=== PATIENT | female | born 1940 | race Caucasian/White ===

== ENCOUNTER 2019-10-15 13:46 | Inpatient (IN) | payer MEDICARE ==
[~2019-10-15] VITALS: Ht 170 cm; Wt 86.3 kg
[~2019-10-15 13:46] MED LIST: ALBU17AE23; AMLO1CAP6 PO; AMLO2.5T; ASPI-84; CLN.1T PO; CLON1PAT15 TD; DARI15TA4 PO; FLUT1DIS26 IH; HYDR1TAB75 PO; HYDROCODONE PO; HYDROCONE PO; NFAMINITAB PO; OXYB5TAB9 PO; SLMFT1E; TOLTA4
[2019-10-15] MEDS ORDERED: CALCIUM CARBONATE 500 MG (TUMS) TAB.CHEW PO PRN (14:15)
[2019-10-15] MEDS ORDERED: LOPERAMIDE 2 MG (IMODIUM) TABLET PO PRN (14:15)
[2019-10-15] MEDS ORDERED: DOCUSATE SODIUM 100 MG (COLACE) CAP PO PRN (14:15)
[2019-10-15] MEDS ORDERED: ACETAMINOPHEN 500 MG TAB (TYLENOL) PO PRN (14:15)
[2019-10-15] MEDS ORDERED: MELATONIN 3 MG TABLET PO PRN (14:15)
[2019-10-15] MEDS ORDERED: ONDANSETRON 4 MG (ZOFRAN) ORAL DISSOLVE TAB PO PRN (14:15)
[2019-10-15] MEDS ORDERED: diphenhydrAMINE 25 MG TAB (BENADRYL) PO PRN (14:15)
--- NOTE | 2019-10-15 15:25 | NUR ---
SANTISTELLA Trevizo admitted to room 431-1, with an admitting diagnosis of BILATERAL PUBIC RAMIUS FRACTURE, on 10/15/19 from [facility] via [facility], accompanied by EMS STAFF. STELLA GU introduced to surroundings, call light, bed controls, phone, TV, temperature control, lights, meal times, smoking policy, visitor policy, side rail policy, bathrooms and showers. Patient Rights given to patient in the handbook. STELLA GU verbalizes understanding that [facility] is not responsible for the loss or damage to any personal effects or valuables that are kept in the patients posession during their hospitalization. STELLA GU verbalizes understanding of Interdisciplinary Patient Education. Patient and/or family were informed about the Rapid Response Team and its purpose.
[2019-10-15] MEDS: HYDROcodone/APAP 5 MG/325 MG (LORTAB) TAB PO PRN (16:10)
[2019-10-15 16:11] VITALS: BP 176/83
[2019-10-15] MEDS: ENOXAPARIN 40 MG/0.4 ML (LOVENOX) SYR SC SCH (17:47)
[2019-10-15 17:56] VITALS: BP 176/83
[2019-10-15 19:30] VITALS: BP 116/66
[2019-10-15] MEDS: HYDROmorphone 2 MG/ML VIAL (DILAUDID) IVP PRN (19:43)
[2019-10-15] MEDS: SENNA W/DOCUSATE (SENOKOT S) TABLET PO SCH (19:46)
--- NOTE | 2019-10-15 20:47 | History & Physical-Hospitalist ---
History of Present Illness HPI/Chief Complaint Chief complaint: Bilateral pubic rami fractures with severe pain and inability to ambulate History of present illness: This is a 79-year-old white female clinic patient of [facility] Don in [place] who has a past medical history of dementia with anxiety, overactive bladder, hypertension and neuropathy who presented to [place] ER after a fall found down at home by her daughter likely on the floor for about 8 hours. She had a very minimal elevation in CPK. She reports that she sustained a fall in the middle of the night and is not aware of exactly what happened. Currently she is only reporting pain where the fractures are. We have placed her on Lovenox and pain control due to immobile state. We will initiate PT and OT orders inquire for prior approval from insurance for inpatient rehab and monitor closely for delirium due to history of dementia. I did review the old records in the [facility] system. I have reviewed her home medication and she will take her own tonight. 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 Her daughters at the bedside. Source: patient, family, RN/MD Exam Limitations: no limitations Date Seen 10/15/19 Time Seen by a Provider: 17:20 Attending Physician Amanda Chavarria MD PCP Sheree Richards Referring Physician Date of Admission Oct 15, 2019 at 15:32 Home Medications & Allergies Home Medications Reviewed patient Home Medication Reconciliation performed by pharmacy medication reconciliations senior electronics technician and/or nursing. Patients Allergies have been reviewed. Allergies Allergies Coded Allergies Indomethacin (Unverified Allergy, Mild, 02/26/10) Lansoprazole (Unverified Allergy, Mild, 02/26/10) Omeprazole (Unverified Allergy, Mild, 02/26/10) Sumatriptan (Unverified Allergy, Mild, 02/26/10) Past Vttupql-Hnedby-Rxlngj Hx Past Med/Social Hx: Reviewed Nursing Past Med/Soc Hx, Reviewed and Corrections made Patient Social History Marrital Status: single Employed/Student: retired (RN) Alcohol Use: Denies Use Recreational Drug Use: No Smoking Status: Never a Smoker Physical Abuse Screen: No Sexual Abuse: No Recent Foreign Travel: No Contact w/other who traveled: No Recent Hopitalizations: Yes (SURGERIES) Recent Infectious Disease Expo: No Immunizations Up To Date Date of Pneumonia Vaccine: Nov 08, 2010 Date of Influenza Vaccine: Aug 07, 2019 Seasonal Allergies Seasonal Allergies: No Past Medical History Cardiac: High Cholesterol, Hypertension Neurological: Dementia, Neuropathy : No Reproductive: No Genitourinary: Bladder Infection OAB Gastrointestinal: Chronic Constipation Musculoskeletal: Fractures Psychosocial: Anxiety, Depression History of Blood Disorders: No Family History Asthma G8 SISTER Cardiovascular disease G8 BROTHER, Completed stroke G8 SISTER Congenital disease G8 SISTER Deafness or hearing loss G8 SISTER FH: lung cancer 19 FATHER Hypertension 19 MOTHER, Myocardial infarction Review of Systems Constitutional: see HPI, weakness Musculoskeletal: back pain, joint pain Psychiatric/Neurological: Anxiety, Depressed Physical Exam Physical Exam Vital Signs Vital Signs - First Documented 10/15/19 16:11 Temp 36.6 Pulse 94 Resp 20 B/P (MAP) 176/83 (114) Pulse Ox 94 O2 Delivery Room Air Capillary Refill : Less Than 3 Seconds Height, Weight, BMI Height: '" Weight: lbs. oz. kg; 29.75 BMI Method: General Appearance: WD/WN, Chronically ill, Mild Distress, Obese Eyes: Right Eye Normal Inspection, Right Eye PERRL HEENT: PERRL/EOMI, Normal ENT Inspection, Pharynx Normal, Moist Mucous Membranes Neck: Full Range of Motion, Normal Inspection, Non Tender Respiratory: Chest Non Tender, Lungs Clear, Normal Breath Sounds, No Accessory Muscle Use, No Respiratory Distress Cardiovascular: Regular Rate, Rhythm, No Edema, No Gallop, No JVD, No Murmur, Normal Peripheral Pulses Gastrointestinal: Normal Bowel Sounds, No Organomegaly, No Pulsatile Mass, Non Tender, Soft Back: Normal Inspection, No CVA Tenderness, No Vertebral Tenderness Extremity: Normal Capillary Refill, Normal Inspection, Normal Range of Motion (limited ROM legs due to pelvic fractures), Non Tender, No Calf Tenderness, No Pedal Edema Neurologic/Psychiatric: Alert, Oriented x3, No Motor/Sensory Deficits, Normal Mood/Affect Skin: Normal Color, Warm/Dry Lymphatic: No Adenopathy Results Results/Procedures Labs Patient resulted labs reviewed. Assessment/Plan Admission Diagnosis Assessment: Bilateral pubic rami fractures Inability to ambulate DVT PPx HTN OAB Dementia Mental illness Neuropathy Anemia iron deficiency Plan: Pain meds Lovenox Home meds PT/OT IRF? BM regimen Admission Status: Inpatient Order (span 2 midnights) Reason for Inpatient Admission: bilateral pubic rami fractures will require at least 3 days since she can't ambulate Diagnosis/Problems Diagnosis/Problems (1) Bilateral pubic rami fractures (2) OAB (overactive bladder) (3) Hypertension (4) Fall (5) Kidney stones (6) Osteoarthritis (7) Behavior disturbance Clinical Quality Measures DVT/VTE Risk/Contraindication: Risk Factor Score Per Nursin RFS Level Per Nursing on Admit: 4+=Very High JANETT COTE DO Oct 15, 2019 20:47 POS
[2019-10-15 23:50] VITALS: BP 113/64
[2019-10-16 04:49] VITALS: BP 134/70
[2019-10-16 05:51] LABS: BASOPHILS % (AUTO) 0 % (0-10); EOSINOPHILS # (AUTO) 0.2 10^3/uL (0.0-0.3); EOSINOPHILS % (AUTO) 3 % (0-10); HEMATOCRIT 39 % (35-52); HEMOGLOBIN 12.9 G/DL (11.5-16.0); LYMPHOCYTES # (AUTO) 2.2 X 10^3 (1.0-4.0); LYMPHOCYTES % (AUTO) 25 % (12-44); MEAN CORPUSCULAR HEMOGLOBIN 28 PG (25-34); MEAN CORPUSCULAR HGB CONC 33 G/DL (32-36); MEAN CORPUSCULAR VOLUME 86 FL (80-99); MEAN PLATELET VOLUME 9.3 FL (7.4-10.4); MONOCYTES # (AUTO) 0.9 X 10^3 (0.0-1.0); MONOCYTES % (AUTO) 10 % (0-12); NEUTROPHILS # (AUTO) 5.6 X 10^3 (1.8-7.8); NEUTROPHILS % (AUTO) 62 % (42-75); PLATELET COUNT 300 10^3/uL (130-400); RED CELL DISTRIBUTION WIDTH 19.1 % (10.0-14.5)
[2019-10-16 06:15] LABS: BILIRUBIN,TOTAL 1.3 MG/DL (0.1-1.0); CALCIUM 9.4 MG/DL (8.5-10.1); CREATININE SERUM 1.23 MG/DL (0.60-1.30); POTASSIUM 3.7 MMOL/L (3.6-5.0); TOTAL PROTEIN 6.5 GM/DL (6.4-8.2)
[2019-10-16 08:00] VITALS: BP 114/62
--- NOTE | 2019-10-16 08:26 | Progress Note ---
RAMONE DEJESUS,MED STUDENT 10/16/19 0826: Subjective Date Seen by a Provider: Oct 16, 2019 Time Seen by a Provider: 07:15 Subjective/Events-last exam Chief complaint: Bilateral pubic rami fractures with severe pain and inability to ambulate History of present illness: This is a 79-year-old white female clinic patient of Theresa Don in [place] who has a past medical history of dementia with anxiety, overactive bladder, hypertension and neuropathy who presented to [place] ER after a fall found down at home by her daughter likely on the floor for about 8 hours. She had a very minimal elevation in CPK. She reports that she sustained a fall in the middle of the night and is not aware of exactly what happened. Currently she is only reporting pain where the fractures are. We have placed her on Lovenox and pain control due to immobile state. We will initiate PT and OT orders inquire for prior approval from insurance for inpatient rehab and monitor closely for delirium due to history of dementia. I did review the old records in the [facility] system. I have reviewed her home medication and she will take her own tonight. 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 Her daughters at the bedside. Subjective/events-last exam Patient feeling well, denies any pain at this time. Denies numbness or tingling. Slept well. Appetite is good. PT/OT and IRF eval today. Objective Exam Last Set of Vital Signs Vital Signs Date Time Temp Pulse Resp B/P (MAP) Pulse Ox O2 Delivery O2 Flow Rate FiO2 10/16/19 04:49 36.5 84 18 134/70 (91) 90 Room Air Capillary Refill : Less Than 3 Seconds I&O Intake and Output 10/16/19 00:00 Intake Total 200 ml Output Total 175 ml Balance 25 ml Intake Oral 200 ml Output Urine Total 175 ml Daily Weight Change No No General: Alert, Cooperative, No Acute Distress Neck: Supple, No LAD Lungs: Clear to Auscultation, Normal Air Movement Heart: Regular Rate, Normal S1, Normal S2, No Murmurs Abdomen: Soft, No Tenderness, No Masses Extremities: No Edema, No Tenderness/Swelling, Other (limited ROM due to b/l pubic rami fracture\) Skin: No Rashes, No Significant Lesion Results Lab Laboratory Tests 10/16/19 05:30: White Blood Count 9.0, Red Blood Count 4.54, Hemoglobin 12.9, Hematocrit 39, Mean Corpuscular Volume 86, Mean Corpuscular Hemoglobin 28, Mean Corpuscular Hemoglobin Concent 33, Red Cell Distribution Width 19.1H, Platelet Count 300, Mean Platelet Volume 9.3, Neutrophils (%) (Auto) 62, Lymphocytes (%) (Auto) 25, Monocytes (%) (Auto) 10, Eosinophils (%) (Auto) 3, Basophils (%) (Auto) 0, Neutrophils # (Auto) 5.6, Lymphocytes # (Auto) 2.2, Monocytes # (Auto) 0.9, Eosinophils # (Auto) 0.2, Basophils # (Auto) 0.0, Sodium Level 136, Potassium Level 3.7, Chloride Level 100, Carbon Dioxide Level 23, Anion Gap 13, Blood Urea Nitrogen 28H, Creatinine 1.23, Estimat Glomerular Filtration Rate 42, BUN/Creatinine Ratio 23, Glucose Level 117H, Calcium Level 9.4, Corrected Calcium 9.4, Total Bilirubin 1.3H, Aspartate Amino Transf (AST/SGOT) 22, Alanine Aminotransferase (ALT/SGPT) 14, Alkaline Phosphatase 73, Total Protein 6.5, Albumin 4.0 Assessment/Plan Assessment/Plan Assess & Plan/Chief Complaint Assessment: Bilateral pubic rami fractures Inability to ambulate DVT PPx HTN OAB Dementia Mental illness Neuropathy Anemia iron deficiency Plan: Pain meds Continue santiago catheter for today Lovenox Home meds PT/OT evaluation IRF evaluation BM regimen Clinical Quality Measures DVT/VTE Risk/Contraindication: Risk Factor Score Per Nursin RFS Level Per Nursing on Admit: 4+=Very High JANETT COTE DO 10/16/192058: Subjective Subjective/Events-last exam Pt doing pretty well having some results from bowel regimen and currently on commode Labs were reviewed, everything within normal limits Lovenox for DVT prophylaxis PT and OT evaluated [facility] pt Will submit for approval for [employer] Denies any significant issues other than paini Dementia may slow recovery Review of Systems General: Fatigue Musculoskeletal: back pain Neurological: Confusion Objective Exam General: Alert, Oriented X3, Cooperative, No Acute Distress HEENT: Atraumatic, PERRLA Neck: Supple, No JVD, No Thyromegaly Lungs: Clear to Auscultation, Normal Air Movement Heart: Regular Rate, Normal S1, Normal S2, No Murmurs Neuro: Other (limited gait ) Assessment/Plan Assessment/Plan Assess & Plan/Chief Complaint PT/OT IRF? NHP? Pain control Diagnosis/Problems Diagnosis/Problems (1) Bilateral pubic rami fractures (2) Kidney stones (3) Osteoarthritis (4) Behavior disturbance (5) Hypertension (6) Fall (7) OAB (overactive bladder) Supervisory-Addendum Brief Verification & Attestation Participated in pt care: history, MDM, physical Personally performed: exam, history, MDM, supervision of care Care discussed with: Medical Student Procedures: n/a Results interpretation: Verified all documentation Verification and Attestation of Medical Student E/M Service A medical student performed and documented this service in my presence. I reviewed and verified all information documented by the medical student and made modifications to such information, when appropriate. I personally performed the physical exam and medical decision making. Janett Cote, Oct 16, 2019,20:58 RAMONE DEJESUS,MED STUDENT Oct 16, 2019 08:26 JANETT URENA DO Oct 16, 2019 20:59 POS
[2019-10-16 08:55] VITALS: BP 134/70
[2019-10-16] MEDS: SENNA W/DOCUSATE (SENOKOT S) TABLET PO SCH ×2 (09:14→19:30)
[2019-10-16] MEDS: HYDROmorphone 2 MG/ML VIAL (DILAUDID) IVP PRN (09:20)
--- NOTE | 2019-10-16 10:30 | NUR ---
SS/CM Met with pt to based on need for Discharge. Plan: Physician ordered inpatient rehab to evaluate. Pt given the choice form and selected [facility] as her choice for in patient rehab. [facility] rehab to evaluate. Summary: Pt seemed a little groggy today, as she was just given some pain medication. Pt was given the choice form and selected [facility] for in patient rehab. Evaluation process explained. Pt's daughter will be here at 11:30am today and this worker will visit pt again once daughter arrives. Pt lives in [place] and reports lives alone. Follow up needed once pt is evaluated by in patient rehab.
--- NOTE | 2019-10-16 10:44 | Physical Therapy Evaluation ---
PT Evaluation-General Medical Diagnosis Admission Date Oct 15, 2019 at 15:32 Medical Diagnosis: bilateral pubic rami fracture Onset Date: Oct 15, 2019 Therapy Diagnosis Therapy Diagnosis: debility/weakness Precautions Precautions/Isolations: Fall Prevention, Standard Precautions Weight Bear Status Right Lower Extremity: Right Weight Bearing/Tolerated Left Lower Extremity: Left Weight Bearing/Tolerated Referral Physician: Edil Reason for Referral: Evaluation/Treatment Medical History Pertinent Medical History: Dementia, HTN, Neuropathy Current History fall at home and on floor x 8 hours Reviewed History: Yes Social History Home: Single Level Current Living Status: Alone (family check on her) Prior Prior Level of Function SCALE: Activities may be completed with or without assistive devices. 4-Fqqgscrsxf-ahjghjh completes the activity by him/herself with no assistance from a helper. 5-Set-up or Clean-up Assistance-helper sets up or cleans up; patient completes activity. [place] assists only prior to or following the activity. 4-Supervision or Touching Assistance-helper provides verbal cues and/or touching/steadying and/or contact guard assistance as patient completes activity. Assistance may be provided throughout the activity or intermittently. 3-Partial/Moderate Assistance-helper does LESS THAN HALF the effort. [place] lifts, holds or supports trunk or limbs, but provides less than half the effort. 2-Substantial/Maximal Assistance-helper does MORE THAN HALF the effort. [place] lifts or holds trunk or limbs and provides more than half the effort. 1-Mgdxrfffj-tlrlrk does ALL the effort. Patient does none of the effort to complete the activity. Or, the assistance of 2 or more helpers is required for the patient to complete the activity. If activity was not attempted, code reason: 7-Patient Refused. 9-Not Applicable-not attempted and the patient did not perform the activity before the current illness, exacerbation or injury. 10-Not Attempted due to Environmental Limitations-(lack of equipment, weather restraints, etc.). 88-Not Attempted due to Medical Conditions or Safety Concerns. Bed Mobility: 5 Transfers (B,C,W/C): 5 Gait: 5 Stairs: 5 Indoor Mobility (Ambulation): Independent Stairs: Independent Prior Devices Use: Walker PT Evaluation-Current Subjective Patient is alert, however, confused. Agrees to PT. Pain Numeric Pain Scale: 10-Worst Possible Pain Location: Right, Left Location Body Site: Pelvic Pain Description: Stabbing, Acute Objective Patient Orientation: Confused Attachments: Oxygen, [place] Catheter ROM/Strength ROM Lower Extremities limited bilaterally due to pain Strength Lower Extremities 3-/5 grossly bilaterally (unable to formally test due to dementia) Integumentary/Posture Integumentary refer to nursing notes Bowel Incontinence: Yes Bladder Incontinence: [place] Cath Posture trunk flexed posture in stand Neuromuscular (Tone, Coordination, Reflexes) severely diminished due to pubic rami pain Sensory Vision: Functional Hearing: Functional Sensation Right Lower Extremit: Impaired Sensation Left Lower Extremity: Impaired Transfers Roll Left to Right (QC): 1 Sit to Lying (QC): 1 Lying to Sitting/Side of Bed(Q: 1 Sit to Stand (QC): 1 Chair/Nou-zv-Leemq Xfer(QC): 1 Car Transfer (QC): 88 dependent assist x 2 with all mobility due to pubic rami pain and resistance Gait Does the Patient Walk?: No and Walking Goal IS indicated Mode of Locomotion: Both Anticipated Mode of Locomotion: Both Walk 10 feet (QC): 88 Walk 50 ft with 2 Turns(QC): 88 Walk 150 ft (QC): 88 Walking 10ft/uneven surface-QC: 88 Distance: 0 Comments/Gait Description patient currently unable to stand and assist with sit to stand and SPT bed to recliner to commode Wheelchair Training Does the Pt Use a Wheelchair?: No Wheel 50 ft with 2 turns (QC): 9 Wheel 150 ft (QC): 9 Type of Wheelchair: Manual Stairs 1 Step (curb) (QC): 88 4 Steps (QC): 88 12 Steps (QC): 9 Balance Sitting Static: Fair Sitting Dynamic: Fair Standing Static: Poor Standing Dynamic: Poor Picking up an Object (QC): 88 Assessment/Needs 79 y.o. female, will benefit from skilled PT to address functional strength and mobility. Patient is currently at dependent x 2 LOF with all gross motor skills and from a PT standpoint, will require extended care facility due to prolonged recovery of bilateral pubic rami fracture and inability to assist with mobility. Rehab Potential: Guarded PT Digital Media Manager Goals Digital Media Manager Goals PT Shelter Goals Time Frame: Oct 28, 2019 Roll Left & Right (QC): 2 Sit to Lying (QC): 2 Lying-Sitting on Side/Bed(QC): 2 Sit to Stand (QC): 2 Chair/Lyd-wr-Dxqin Xfer(QC): 2 Toilet Transfer (QC): 2 Car Transfer (QC): 88 Does the Patient Walk: No and Walking Goal IS indicated Walk 10 feet (QC): 2 Walk 50ft with 2 Turns (QC): 2 Walk 150 ft (QC): 88 Walking 10ft on Uneven Surface: 2 1 Step (curb) (QC): 2 4 Steps (QC): 9 12 Steps (QC): 9 Picking up an Object (QC): 3 Does the Pt use WC or Scooter?: Yes Type: Manual Type: Manual PT Plan Problem List Problem List: Activity Tolerance, Functional Strength, Safety, Balance, Gait, Transfer, Bed Mobility, ROM Treatment/Plan Treatment Plan: Continue Plan of Care Treatment Plan: Bed Mobility, Education, Functional Activity Tanya, Functional Strength, Gait, Safety, Therapeutic Exercise, Transfers Treatment Duration: Oct 28, 2019 Frequency: 6 times per week Estimated Hrs Per Day: .5 hour per day Patient and/or Family Agrees t: Yes Safety Risks/Education Patient Education: Safety Issues Teaching Recipient: Patient Teaching Methods: Demonstration, Discussion Response to Teaching: Unable to Return Demonstration, Reinforcement Needed Discharge Recommendations Therapy Discharge Recommendati: Other, See Comments (NH secondary to current dependence) Time/GCodes Time In: 907 Time Out: 922 Total Billed Treatment Time: 15 Total Billed Treatment 1 visit EVMod 15 min NOMI SHERMAN PT Oct 16, 2019 10:44 POS
[2019-10-16] MEDS ORDERED: AMLO5TAB9 PO (10:50)
[2019-10-16] MEDS ORDERED: ALBU6.7H8 INH (10:50)
[2019-10-16] MEDS ORDERED: MULT-436 PO (10:50)
[2019-10-16] MEDS ORDERED: MIRA25TA PO (10:50)
[2019-10-16] MEDS ORDERED: GABA-486 PO (10:50)
[2019-10-16] MEDS ORDERED: MEMA5TAB16 PO (10:50)
[2019-10-16] MEDS ORDERED: ESCI10TA55 PO (10:50)
[2019-10-16] MEDS ORDERED: QUET50TA PO (10:55)
[2019-10-16] MEDS ORDERED: FERR325T18 PO (10:55)
[2019-10-16] MEDS ORDERED: MELA5TAB14 PO (10:55)
--- NOTE | 2019-10-16 10:56 | NUR ---
SPOKE WITH THE PATIENT ABOUT HER MEDICATIONS. SHE ASKED THAT I CALL HER DAUGHTER ARAMIS WHO HELPS HER WITH HER MEDICINE. I CALLED ARAMIS WHO HAD A LIST, WE WENT OVER THAT LIST AND I COMPARED IT WITH THE EXT MED HX. IN ADDITION TO WHAT IS SHOWN ON THE EXT MED HX [facility] FILLED: 09-21-19 FERROUS SULFATE 325MG BID #60 08-23-19 SEROQUEL 50MG DAILY #90 (STATES SHE TAKES 1/2 TAB AT HS) SHE TAKES THE FOLLOWING OTC: MELATONIN 5MG HS MTV DAILY THE OXYBUTYNIN ON THE EXT MED HX WAS STOPPED AND CHANGED TO MYRBETRIQ.
[2019-10-16] MEDS: RT-ALBUTEROL/IPRATROPIUM 3 ML (DUONEB) VIAL INH SCH ×3 (11:21→18:58)
[2019-10-16 12:00] VITALS: BP 134/63
[2019-10-16] MEDS ORDERED: RT-ALBUTEROL/IPRATROPIUM 3 ML (DUONEB) VIAL INH PRN (13:00)
--- NOTE | 2019-10-16 13:01 | NUR ---
CM/SS: Met with daughter Deana to discuss discharge plan for pt. Plan: Based on consult, pt will be evaluated for inpatient rehab. Daughter request that pt remain in the hospital for rehab. Discussed the choice form, explained this workers earlier meeting with patient. Daughter reports that pt has a recent (4 months) diagnosis of Dementia. Daughter does not request that pt go to [facility]. She will be with the pt most of the afternoon today. Will follow up to determine plan for pt.
--- NOTE | 2019-10-16 14:45 | Occupational Therapy Eval ---
OT Evaluation-General/PLF Medical Diagnosis Admission Date Oct 15, 2019 at 15:32 Medical Diagnosis: bilateral pubic rami fracture Onset Date: Oct 15, 2019 Therapy Diagnosis Therapy Diagnosis: impaired ADLs and functional mobility Precautions Precautions/Isolations: Fall Prevention, Standard Precautions Safety Interventions: Bed Exit Alarm Weight Bear Status Weight Bearing Restriction: Weight Bearing/Tolerated Location Restriction: LE Bilateral Referral Physician: Edil Referral Reason: Activity Tolerance, Self Care, Evaluation/Treatment, Strengthening/ROM Medical History Pertinent Medical History: Dementia, HTN, Neuropathy Additional Medical History anxiety, overactive bladder, high cholesterol Current History Per H&P: "History of present illness: This is a 79-year-old white female clinic patient of [facility] in [place] who has a past medical history of dementia with anxiety, overactive bladder, hypertension and neuropathy who presented to [place] ER after a fall found down at home by her daughter likely on the floor for about 8 hours. She had a very minimal elevation in CPK. She reports that she sustained a fall in the middle of the night and is not aware of exactly what happened. Currently she is only reporting pain where the fractures are. We have placed her on Lovenox and pain control due to immobile state. We will initiate PT and OT orders inquire for prior approval from insurance for inpatient rehab and monitor closely for delirium due to history of dementia. I did review the old records in the [facility] system. I have reviewed her home medication and she will take her own tonight. 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 Her daughters at the bedside." Reviewed History: Yes Social History Home: Single Level Current Living Status: Alone (family check on her) Entry Into Home: Stairs With Railing Steps Into Home: 2 ADL-Prior Level of Function SCALE: Activities may be completed with or without assistive devices. 0-Skgmgntwxk-agrqizk completes the activity by him/herself with no assistance from a helper. 5-Set-up or Clean-up Assistance-helper sets up or cleans up; patient completes activity. [place] assists only prior to or following the activity. 4-Supervision or Touching Assistance-helper provides verbal cues and/or touching/steadying and/or contact guard assistance as patient completes activity. Assistance may be provided throughout the activity or intermittently. 3-Partial/Moderate Assistance-helper does LESS THAN HALF the effort. [place] lifts, holds or supports trunk or limbs, but provides less than half the effort. 2-Substantial/Maximal Assistance-helper does MORE THAN HALF the effort. [place] lifts or holds trunk or limbs and provides more than half the effort. 8-Sxwsglpuu-iuoumk does ALL the effort. Patient does none of the effort to complete the activity. Or, the assistance of 2 or more helpers is required for the patient to complete the activity. If activity was not attempted, code reason: 7-Patient Refused. 9-Not Applicable-not attempted and the patient did not perform the activity before the current illness, exacerbation or injury. 10-Not Attempted due to Environmental Limitations-(lack of equipment, weather restraints, etc.). 88-Not Attempted due to Medical Conditions or Safety Concerns. ADL PLOF Comments Per pt and daughter report: Pt was independent with bathing and dressing prior to hospitalization. Her 4 kids assist her with cooking and cleaning. Self Care: Independent Functional Cognition: Needed Some Help DME/Equipment: Bath Chair, Tub DME/Equipment Comments Pt and daughter denies use of walker/cane prior to hospitalization. Occupation: retired (RN) OT Current Status Subjective Pt laying in bed with daughter present at bedside. Pt states she just got back to bed and did not want to do anything, agreeable to answering questions for OT evaluation. Mental Status/Objective Patient Orientation: Person, Place, Situation When asked what year it was pt replied "1939 something". OT and daughter reoriented pt to correct year. Current Glasses/Contacts: Yes Hearing Aids: No Dentures/Partials: Yes Hand Dominance: Right Upper Extremity ROM WFL, BUE shoulder flexion to approximately 160 degrees. Upper Extremity Coordination WFL finger to nose test Upper Extremity Sensation pt declines tingling/numbness Upper Extremity Strength grossly 3+/5 MMT ADL-Treatment Eating (QC): 7 Oral Hygiene (QC): 7 Shower/Bathe Self (QC): 7 Upper Body Dressing (QC): 7 Lower Body Dressing (QC): 7 On/Off Footwear (QC): 7 Toileting Hygiene (QC): 7 Toilet Transfer (QC): 7 Other Treatments Pt provided information about PLOF and home set up. Pt declined all ADLs at this time stating she just got into bed, declined sitting EOB during tx. Post OT session, pt laying in bed with call light in reach and all needs met, daughter present. Education OT Patient Education: Correct positioning, Energy conservation, Modified ADL techniques, Progress toward Goal/Update tx plan, Purpose of tx/functional activities Teaching Recipient: Patient, Family Teaching Methods: Discussion Response to Teaching: Verbalize Understanding OT Slitter Scorer Goals Slitter Scorer Goals Time Frame: Oct 27, 2019 Eating (QC): 6 Oral Hygiene (QC): 6 Toileting Hygiene (QC): 6 Shower/Bathe Self (QC): 6 Upper Body Dressing (QC): 6 Lower Body Dressing (QC): 6 On/Off Footwear (QC): 6 Additional Goals: 1-Demonstrate ADL Tasks, 2-Verbalize Understanding, 3-ImproveStrength/Tanya 1=Demonstrate adherence to instructed precautions during ADL tasks. 2=Patient will verbalize/demonstrate understanding of assistive devices/modifications for ADL. 3=Patient will improve strength/tolerance for activity to enable patient to perform ADL's. OT Education/Plan Problem List/Assessment Assessment: Decreased Activ Tolerance, Decreased UE Strength, Impaired I ADL's, Impaired Self-Care Skills Discharge Recommendations Plan/Recommendations: Continue POC Treatment Plan/Plan of Care Treatment,Training & Education: Yes Patient would benefit from OT for education, treatment and training to promote independence in ADL's, mobility, safety and/or upper extremity function for ADL's. Plan of Care: ADL Retraining, Caregiver Training, Functional Mobility, UE Funct Exercise/Act Treatment Duration: Oct 27, 2019 Frequency: 5 times per week Estimated Hrs Per Day: .25 hour per day Agreement: Yes Rehab Potential: Guarded Time/GCodes Start Time: 14:05 Stop Time: 14:13 Total Time Billed (hr/min): 8 Billed Treatment Time 1, KELVIN TOVAR OT Oct 16, 2019 14:45 POS
[2019-10-16] MEDS: HYDROcodone/APAP 5 MG/325 MG (LORTAB) TAB PO PRN ×2 (16:28→21:13)
[2019-10-16 16:51] VITALS: BP 160/74
[2019-10-16] MEDS: ENOXAPARIN 40 MG/0.4 ML (LOVENOX) SYR SC SCH (17:54)
[2019-10-16 20:40] VITALS: BP 134/60
[2019-10-16] MEDS: ALPRAZolam 0.25 MG (XANAX) TAB PO PRN (21:07)
[2019-10-17 00:40] VITALS: BP 160/74
[2019-10-17] MEDS: HYDROmorphone 2 MG/ML VIAL (DILAUDID) IVP PRN (00:44)
[2019-10-17 07:35] VITALS: BP 130/72
--- NOTE | 2019-10-17 08:07 | Progress Note ---
RAMONE DEJESUS,MED STUDENT 10/17/19 0807: Subjective Date Seen by a Provider: Oct 17, 2019 Time Seen by a Provider: 07:23 Subjective/Events-last exam Chief complaint: Bilateral pubic rami fractures with severe pain and inability to ambulate History of present illness: This is a 79-year-old white female clinic patient of [facility] in [place] who has a past medical history of dementia with anxiety, overactive bladder, hypertension and neuropathy who presented to [place] ER after a fall found down at home by her daughter likely on the floor for about 8 hours. She had a very minimal elevation in CPK. She reports that she sustained a fall in the middle of the night and is not aware of exactly what happened. Currently she is only reporting pain where the fractures are. We have placed her on Lovenox and pain control due to immobile state. We will initiate PT and OT orders inquire for prior approval from insurance for inpatient rehab and monitor closely for delirium due to history of dementia. I did review the old records in the [facility] system. I have reviewed her home medication and she will take her own tonight. 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 Her daughters at the bedside. Subjective/events-last exam Pt appears more alert today Her pain is well controlled at this time but is exacerbated with movement She has not had a significant bowel movement for 2 days On lovenox for DVT prophylaxis Participated in PT and OT evaluation yesterday Dementia may slow recovery Will submit for approval for [facility] Objective Exam Last Set of Vital Signs Vital Signs Date Time Temp Pulse Resp B/P (MAP) Pulse Ox O2 Delivery O2 Flow Rate FiO2 10/17/19 00:40 36.8 109 21 160/74 (102) 93 Nasal Cannula 1.50 10/16/19 08:55 21 Capillary Refill : Less Than 3 Seconds I&O Intake and Output 10/17/19 00:00 Intake Total 670 ml Output Total 775 ml Balance -105 ml Intake Oral 670 ml Output Urine Total 775 ml General: Alert, No Acute Distress HEENT: Atraumatic, Mucous Memb Moist/[place] Neck: Supple, No LAD Lungs: Clear to Auscultation, Normal Air Movement Heart: Normal S1, Normal S2, No Murmurs, Other (tachycardia with regular rhythm) Abdomen: Soft, No Tenderness, No Masses, Other (decreased bowel sounds) Extremities: No Edema, No Tenderness/Swelling, Other (limited ROM of lower extremities due to b/l pubic rami fracture) Skin: No Rashes, No Significant Lesion Neuro: Sensation Intact Assessment/Plan Assessment/Plan Assess & Plan/Chief Complaint Assessment: Bilateral pubic rami fractures Inability to ambulate HTN OAB Dementia Mental illness Neuropathy Plan: Discontinue [place] Pain control Lovenox for DVT prophylaxis Home meds Continue OT/PT Wants discharge to [facility] in [place] when she is ready - will submit to [facility] Clinical Quality Measures DVT/VTE Risk/Contraindication: Risk Factor Score Per Nursin RFS Level Per Nursing on Admit: 4+=Very High JANETT COTE DO 10/17/192050: Subjective Subjective/Events-last exam Pt doing pretty well. Slow recovery. Skilled care will be required. Dementia precludes a past recovery. Pain is still an issue. Will initiate a suppository and an enema for bowels due to narcotic bowel risk an immoblile state contributing to the constipation. Review of Systems Gastrointestinal: Constipation Musculoskeletal: leg pain Objective Exam General: Alert, Oriented X3, Cooperative, No Acute Distress HEENT: Atraumatic, PERRLA Lungs: Clear to Auscultation, Normal Air Movement Heart: Regular Rate, Normal S1, Normal S2, No Murmurs Psych/Mental Status: Mood NL, Other (confused, poor recall) Assessment/Plan Assessment/Plan Assess & Plan/Chief Complaint Assessment: B/L pubic rami fractures Immobile due to pain DVT PPx Constipation HTN Dementia Plan: Monitor pain Monitor labs BM regimen Needs AK Diagnosis/Problems Diagnosis/Problems (1) Bilateral pubic rami fractures (2) Chronic mental illness (3) Kidney stones (4) Osteoarthritis (5) Behavior disturbance (6) Hypertension (7) Fall (8) OAB (overactive bladder) Supervisory-Addendum Brief Verification & Attestation Participated in pt care: history, MDM, physical Personally performed: exam, history, MDM, supervision of care Care discussed with: Medical Student Procedures: n/a Results interpretation: Verified all documentation Verification and Attestation of Medical Student E/M Service A medical student performed and documented this service in my presence. I r eviewed and verified all information documented by the medical student and made modifications to such information, when appropriate. I personally performed the physical exam and medical decision making. Janett Cote, Oct 17, 2019,20:51 RAMONE DEJESUS,MED STUDENT Oct 17, 2019 08:07 JANETT URENA DO Oct 17, 2019 20:51 POS
[2019-10-17] MEDS: RT-ALBUTEROL/IPRATROPIUM 3 ML (DUONEB) VIAL INH SCH ×4 (08:14→23:14)
--- NOTE | 2019-10-17 09:30 | Occupational Ther Daily Note ---
OT Current Status-Daily Note Subjective Pt seated upright in recliner at start of session with daughter present. Pt and daughter agreeable to OT tx with focus on ADLs this AM. Pain Numeric Pain Scale: 10-Worst Possible Pain Mental Status/Objective Attachments: Oxygen ADL-Treatment Therapy Code Descriptions/Definitions Functional [place] Measure: 0=Not Assessed/NA 4=Minimal Assistance 1=Total Assistance 5=Supervision or Setup 2=Maximal Assistance 6=Modified [place] 3=Moderate Assistance 7=Complete IndependenceSCALE: Activities may be completed with or without assistive devices. 3-Qhyaebhsln-vwjzukd completes the activity by him/herself with no assistance from a helper. 5-Set-up or Clean-up Assistance-helper sets up or cleans up; patient completes activity. [place] assists only prior to or following the activity. 4-Supervision or Touching Assistance-helper provides verbal cues and/or touching/steadying and/or contact guard assistance as patient completes activity. Assistance may be provided throughout the activity or intermittently. 3-Partial/Moderate Assistance-helper does LESS THAN HALF the effort. [place] lifts, holds or supports trunk or limbs, but provides less than half the effort. 2-Substantial/Maximal Assistance-helper does MORE THAN HALF the effort. [place] lifts or holds trunk or limbs and provides more than half the effort. 3-Uhqlpczko-wwraym does ALL the effort. Patient does none of the effort to complete the activity. Or, the assistance of 2 or more helpers is required for the patient to complete the activity. If activity was not attempted, code reason: 7-Patient Refused. 9-Not Applicable-not attempted and the patient did not perform the activity before the current illness, exacerbation or injury. 10-Not Attempted due to Environmental Limitations-(lack of equipment, weather restraints, etc.). 88-Not Attempted due to Medical Conditions or Safety Concerns. Bathing Location: L Arm, R Arm, L Upper Leg, R Upper Leg, Chest, Abdomen, Perineal Area Shower/Bathe Self (QC): 3 (Pt completed sponge bath at recliner with set up of warm wet wipes. Pt required assistance with washing BLE lower legs. Pt declined standing during sponge bath to wash buttocks. ) Upper Body Dressing (QC): 3 (Pt was able to doff gown after OT untied gown, pt able to thread BUE into gown with assistance for tying.) FOOTWEAR QC: 1 (pt required assist with BLE socks) Other Treatment Pt sitting upright in recliner throughout session. She participated in sponge b ath and dressing at recliner. Post OT session, pt seated upright in recliner with daughter present, call light in reach and all needs met. Education OT Patient Education: Correct positioning, Energy conservation, Modified ADL techniques, Progress toward Goal/Update tx plan, Purpose of tx/functional activities Teaching Recipient: Patient, Family Teaching Methods: Discussion Response to Teaching: Verbalize Understanding OT It Applications Analyst Goals It Applications Analyst Goals Time Frame: Oct 27, 2019 Eating (QC): 6 Oral Hygiene (QC): 6 Toileting Hygiene (QC): 6 Shower/Bathe Self (QC): 6 Upper Body Dressing (QC): 6 Lower Body Dressing (QC): 6 On/Off Footwear (QC): 6 Additional Goals: 1-Demonstrate ADL Tasks, 2-Verbalize Understanding, 3- ImproveStrength/Tanya 1=Demonstrate adherence to instructed precautions during ADL tasks. 2=Patient will verbalize/demonstrate understanding of assistive devices/modifications for ADL. 3=Patient will improve strength/tolerance for activity to enable patient to perform ADL's. OT Education/Plan Problem List/Assessment Assessment: Decreased Activ Tolerance, Decreased UE Strength, Dependent Transfers, Impaired Funct Balance, Impaired I ADL's, Impaired Self-Care Skills Discharge Recommendations Plan/Recommendations: Continue POC Treatment Plan/Plan of Care Treatment,Training & Education: Yes Patient would benefit from OT for education, treatment and training to promote independence in ADL's, mobility, safety and/or upper extremity function for ADL's. Plan of Care: ADL Retraining, Caregiver Training, Functional Mobility, UE Funct Exercise/Act Treatment Duration: Oct 27, 2019 Frequency: 5 times per week Estimated Hrs Per Day: .25 hour per day Agreement: Yes Rehab Potential: Guarded Time/GCodes Start Time: 08:37 Stop Time: 08:52 Total Time Billed (hr/min): 15 Billed Treatment Time 1, ADL KELVIN QURESHI OT Oct 17, 2019 09:30 POS
[2019-10-17] MEDS: SENNA W/DOCUSATE (SENOKOT S) TABLET PO SCH ×2 (09:40→20:20)
[2019-10-17] MEDS ORDERED: BISACODYL 10 MG SUPP (DULCOLAX) PR ONE (09:45)
--- NOTE | 2019-10-17 09:57 | NUR ---
IRF Evaluation Order to evaluate patient for the ARU. Chart review complete and it appears patient is refusing completion of ADLs, dependent for bed mobility, and ambulation has not been tested due to safety concerns; therefore, patient is denied due to inability to tolerate intensive therapies, at this time. CM/SS notified. Thank you for this referral.
--- NOTE | 2019-10-17 10:14 | Physical Therapy Daily Note ---
PT Daily Note-Current Subjective Patient is up in recliner with family present. Agrees to PT. Pain Numeric Pain Scale: 10-Worst Possible Pain Location: Right, Left Location Body Site: Pelvic Pain Description: Acute Mental Status Patient Orientation: Person, Time, Situation Attachments: Oxygen, [place] Catheter Transfers SCALE: Activities may be completed with or without assistive devices. 4-Xvjlvhonow-cyovqok completes the activity by him/herself with no assistance from a helper. 5-Set-up or Clean-up Assistance-helper sets up or cleans up; patient completes activity. [place] assists only prior to or following the activity. 4-Supervision or Touching Assistance-helper provides verbal cues and/or touching/steadying and/or contact guard assistance as patient completes activity. Assistance may be provided throughout the activity or intermittently. 3-Partial/Moderate Assistance-helper does LESS THAN HALF the effort. [place] lifts, holds or supports trunk or limbs, but provides less than half the effort. 2-Substantial/Maximal Assistance-helper does MORE THAN HALF the effort. [place] lifts or holds trunk or limbs and provides more than half the effort. 3-Bshvmvqzo-aoghyg does ALL the effort. Patient does none of the effort to complete the activity. Or, the assistance of 2 or more helpers is required for the patient to complete the activity. If activity was not attempted, code reason: 7-Patient Refused. 9-Not Applicable-not attempted and the patient did not perform the activity before the current illness, exacerbation or injury. 10-Not Attempted due to Environmental Limitations-(lack of equipment, weather restraints, etc.). 88-Not Attempted due to Medical Conditions or Safety Concerns. Sit to Stand (QC): 1 (x 2 with patient unable to complete sit to stand due to pubic rami pain) x 4 sets Weight Bearing Right Lower Extremity: Right Weight Bearing/Tolerated Left Lower Extremity: Left Weight Bearing/Tolerated Exercises Seated Therapy Exercises: Ankle pumps, Long arc quads Seated Reps: 15 Standing: Sit to Stand (x 4) Assessment Patient continues to require dependent assist x 2 with all mobility due to pubic rami pain. Patient unable to perform sit to stand transfer to FWW and demonstrates flexed knee and trunk posture. PT Head Cager Goals Halfway Goals PT Halfway Goals Time Frame: Oct 28, 2019 Roll Left & Right (QC): 2 Sit to Lying (QC): 2 Lying-Sitting on Side/Bed(QC): 2 Sit to Stand (QC): 2 Chair/Utk-av-Kwdug Xfer(QC): 2 Toilet Transfer (QC): 2 Car Transfer (QC): 88 Does the Patient Walk: No and Walking Goal IS indicated Walk 10 feet (QC): 2 Walk 50ft with 2 Turns (QC): 2 Walk 150 ft (QC): 88 Walking 10ft on Uneven Surface: 2 1 Step (curb) (QC): 2 4 Steps (QC): 9 12 Steps (QC): 9 Picking up an Object (QC): 3 Does the Pt use WC or Scooter?: Yes Type: Manual Type: Manual PT Plan Treatment/Plan Treatment Plan: Continue Plan of Care Treatment Plan: Bed Mobility, Education, Functional Activity Tanya, Functional Strength, Gait, Safety, Therapeutic Exercise, Transfers Treatment Duration: Oct 28, 2019 Frequency: 6 times per week Estimated Hrs Per Day: .5 hour per day Patient and/or Family Agrees t: Yes Time/GCodes Time In: 900 Time Out: 923 Total Billed Treatment Time: 23 Total Billed Treatment 1 visit EX x 2 23 min NOMI SHERMAN PT Oct 17, 2019 10:14 POS
[2019-10-17] MEDS ORDERED: BISACODYL 10 MG SUPP (DULCOLAX) ONE (13:50)
[2019-10-17] MEDS: HYDROcodone/APAP 5 MG/325 MG (LORTAB) TAB PO PRN ×2 (14:01→20:20)
[2019-10-17 16:41] VITALS: BP 156/78
[2019-10-17] MEDS: ENOXAPARIN 40 MG/0.4 ML (LOVENOX) SYR SC SCH (18:23)
[2019-10-17] MEDS: ALPRAZolam 0.25 MG (XANAX) TAB PO PRN (20:20)
[2019-10-17] MEDS ORDERED: NON-FORMULARY MEDICATION 1 EA EA (Memantine HCl 5 MG) PO SCH (21:00)
[2019-10-17] MEDS ORDERED: NON-FORMULARY MEDICATION 1 EA EA (Melatonin 5 MG) PO SCH (21:00)
[2019-10-17] MEDS ORDERED: RT-ALBUTEROL SULF 2.5 MG/3 ML PRE-MIX VIAL INH PRN (21:00)
[2019-10-17] MEDS ORDERED: QUETIAPINE FUMARATE 25 MG PO SCH (21:00)
[2019-10-17] MEDS ORDERED: GABAPENTIN 100 MG (NEURONTIN) CAP PO SCH (21:00)
[2019-10-17] MEDS: FERROUS SULF 325 MG (IRON) TAB PO SCH (21:28)
[2019-10-18 00:05] VITALS: BP 158/71
[2019-10-18] MEDS: HYDROcodone/APAP 5 MG/325 MG (LORTAB) TAB PO PRN ×3 (04:26→20:21)
[2019-10-18 05:26] LABS: BASOPHILS # (AUTO) 0.1 10^3/uL (0.0-0.1); BASOPHILS % (AUTO) 1 % (0-10); EOSINOPHILS # (AUTO) 0.4 10^3/uL (0.0-0.3); EOSINOPHILS % (AUTO) 5 % (0-10); HEMATOCRIT 39 % (35-52); HEMOGLOBIN 12.8 G/DL (11.5-16.0); LYMPHOCYTES # (AUTO) 2.6 X 10^3 (1.0-4.0); LYMPHOCYTES % (AUTO) 28 % (12-44); MEAN CORPUSCULAR HEMOGLOBIN 29 PG (25-34); MEAN CORPUSCULAR HGB CONC 33 G/DL (32-36); MEAN CORPUSCULAR VOLUME 87 FL (80-99); MEAN PLATELET VOLUME 9.2 FL (7.4-10.4); MONOCYTES # (AUTO) 1.1 X 10^3 (0.0-1.0); MONOCYTES % (AUTO) 12 % (0-12); NEUTROPHILS # (AUTO) 5.3 X 10^3 (1.8-7.8); NEUTROPHILS % (AUTO) 56 % (42-75); PLATELET COUNT 270 10^3/uL (130-400); RED CELL DISTRIBUTION WIDTH 18.7 % (10.0-14.5); WHITE BLOOD COUNT 9.4 10^3/uL (4.3-11.0)
[2019-10-18 05:50] LABS: ALANINE AMINOTRANSFERASE 14 U/L (0-55); ALBUMIN 3.9 GM/DL (3.2-4.5); ALKALINE PHOSPHATASE 75 U/L (40-136); BILIRUBIN,TOTAL 1.2 MG/DL (0.1-1.0); BUN/CREATININE RATIO 26; CALCIUM 9.6 MG/DL (8.5-10.1); CARBON DIOXIDE 26 MMOL/L (21-32); CHLORIDE 103 MMOL/L (98-107); GFR ESTIMATED > 60; GLUCOSE 104 MG/DL (70-105); POTASSIUM 4.5 MMOL/L (3.6-5.0); SODIUM 139 MMOL/L (135-145); TOTAL PROTEIN 6.6 GM/DL (6.4-8.2)
[2019-10-18] MEDS ORDERED: MULTIVIT W/MINERALS TAB (THERAGRAN M) PO SCH (07:00)
[2019-10-18 08:00] VITALS: BP 127/80
[2019-10-18] MEDS: RT-ALBUTEROL/IPRATROPIUM 3 ML (DUONEB) VIAL INH SCH ×4 (08:50→20:13)
[2019-10-18] MEDS ORDERED: [UNRECOGNIZED DRUG - OTHER] PO SCH (09:00)
[2019-10-18] MEDS ORDERED: NON-FORMULARY MEDICATION 1 EA EA (Amlodipine Besylate 5 MG) PO SCH (09:00)
[2019-10-18] MEDS ORDERED: NON-FORMULARY MEDICATION 1 EA EA (Escitalopram Oxalate 10 MG) PO SCH (09:00)
[2019-10-18] MEDS ORDERED: MULTIVITAMIN WITH MINERALS PO SCH (09:00)
[2019-10-18] MEDS: FERROUS SULF 325 MG (IRON) TAB PO SCH ×2 (09:24→20:18)
[2019-10-18] MEDS: SENNA W/DOCUSATE (SENOKOT S) TABLET PO SCH ×2 (09:24→20:22)
[2019-10-18] MEDS: amLODIPine 5 MG (NORVASC) TAB PO SCH (09:24)
--- NOTE | 2019-10-18 09:50 | Occupational Ther Daily Note ---
OT Current Status-Daily Note Subjective Pt laying in bed with daughter present. Pt agreeable to OT session with focus on ADLs, she declined sponge bath on this date. Mental Status/Objective Attachments: [place] Catheter, Oxygen ADL-Treatment Therapy Code Descriptions/Definitions Functional [place] Measure: 0=Not Assessed/NA 4=Minimal Assistance 1=Total Assistance 5=Supervision or Setup 2=Maximal Assistance 6=Modified [place] 3=Moderate Assistance 7=Complete IndependenceSCALE: Activities may be completed with or without assistive devices. 1-Xwxwewmmne-cqedpcd completes the activity by him/herself with no assistance from a helper. 5-Set-up or Clean-up Assistance-helper sets up or cleans up; patient completes activity. [place] assists only prior to or following the activity. 4-Supervision or Touching Assistance-helper provides verbal cues and/or touching/steadying and/or contact guard assistance as patient completes activity. Assistance may be provided throughout the activity or intermittently. 3-Partial/Moderate Assistance-helper does LESS THAN HALF the effort. [place] lifts, holds or supports trunk or limbs, but provides less than half the effort. 2-Substantial/Maximal Assistance-helper does MORE THAN HALF the effort. [place] lifts or holds trunk or limbs and provides more than half the effort. 7-Hkurifhdz-mgvjnn does ALL the effort. Patient does none of the effort to complete the activity. Or, the assistance of 2 or more helpers is required for the patient to complete the activity. If activity was not attempted, code reason: 7-Patient Refused. 9-Not Applicable-not attempted and the patient did not perform the activity before the current illness, exacerbation or injury. 10-Not Attempted due to Environmental Limitations-(lack of equipment, weather restraints, etc.). 88-Not Attempted due to Medical Conditions or Safety Concerns. Oral Hygiene (QC): 3 (Pt able to remove dentures and place in container, she then opened denture tablet and placed into container. OT filled with water, then later rinsed at sink. Pt able to remove and place in her mouth.) Other Treatment Pt laying in bed at start of session, completed oral hygiene at bed level. As her dentures soaked, OT provided set up warm washcloth in order for pt to wash her face. Pt then able to complete oral hygiene task. Pt declined sponge bath and changing her gown on this date. Post OT session, pt laying in bed, call light in reach and all needs met with her daughter present. Education OT Patient Education: Energy conservation, Modified ADL techniques, Progress toward Goal/Update tx plan, Purpose of tx/functional activities Teaching Recipient: Patient, Family Teaching Methods: Demonstration, Discussion Response to Teaching: Verbalize Understanding, Return Demonstration OT Dredge Worker Goals Mcfp Goals Time Frame: Oct 27, 2019 Eating (QC): 6 Oral Hygiene (QC): 6 Toileting Hygiene (QC): 6 Shower/Bathe Self (QC): 6 Upper Body Dressing (QC): 6 Lower Body Dressing (QC): 6 On/Off Footwear (QC): 6 Additional Goals: 1-Demonstrate ADL Tasks, 2-Verbalize Understanding, 3- ImproveStrength/Tanya 1=Demonstrate adherence to instructed precautions during ADL tasks. 2=Patient will verbalize/demonstrate understanding of assistive devices/modifications for ADL. 3=Patient will improve strength/tolerance for activity to enable patient to perform ADL's. OT Education/Plan Problem List/Assessment Assessment: Decreased Activ Tolerance, Decreased UE Strength, Impaired I ADL's, Impaired Self-Care Skills Discharge Recommendations Plan/Recommendations: Continue POC Treatment Plan/Plan of Care Treatment,Training & Education: Yes Patient would benefit from OT for education, treatment and training to promote independence in ADL's, mobility, safety and/or upper extremity function for ADL's. Plan of Care: ADL Retraining, Caregiver Training, Functional Mobility, UE Funct Exercise/Act Treatment Duration: Oct 27, 2019 Frequency: 5 times per week Estimated Hrs Per Day: .25 hour per day Agreement: Yes Rehab Potential: Guarded Time/GCodes Start Time: 08:45 Stop Time: 08:57 Total Time Billed (hr/min): 12 Billed Treatment Time 1, ADL KELVIN QURESHI OT Oct 18, 2019 09:50 POS
--- NOTE | 2019-10-18 10:55 | Physical Therapy Daily Note ---
PT Daily Note-Current Subjective Patient in bed pre tx, agrees to PT, voices no complaints of pain. Patient has a purewick that nurse aide takes out so she can transfer to recliner. Appearance Patient in recliner post tx with nurse call, phone, tray, all needs met, legs elevated. Mental Status Patient Orientation: Person, Place, Situation Transfers SCALE: Activities may be completed with or without assistive devices. 2-Zedvbtcnew-zoblrhs completes the activity by him/herself with no assistance from a helper. 5-Set-up or Clean-up Assistance-helper sets up or cleans up; patient completes activity. [place] assists only prior to or following the activity. 4-Supervision or Touching Assistance-helper provides verbal cues and/or touching/steadying and/or contact guard assistance as patient completes activity. Assistance may be provided throughout the activity or intermittently. 3-Partial/Moderate Assistance-helper does LESS THAN HALF the effort. [place] lifts, holds or supports trunk or limbs, but provides less than half the effort. 2-Substantial/Maximal Assistance-helper does MORE THAN HALF the effort. [place] lifts or holds trunk or limbs and provides more than half the effort. 5-Gedfpceub-mlxvst does ALL the effort. Patient does none of the effort to complete the activity. Or, the assistance of 2 or more helpers is required for the patient to complete the activity. If activity was not attempted, code reason: 7-Patient Refused. 9-Not Applicable-not attempted and the patient did not perform the activity b efore the current illness, exacerbation or injury. 10-Not Attempted due to Environmental Limitations-(lack of equipment, weather restraints, etc.). 88-Not Attempted due to Medical Conditions or Safety Concerns. Roll Left & Right (QC): 1 Lying to Sitting/Side of Bed(Q: 1 Sit to Stand (QC): 2 Chair/Cch-gn-Bsped Xfer(QC): 2 Patient attempts to move legs toward the side of the bed in preparation for supine to sit but she is unable to. Supine to sit with the use of 2 people is required and she needs max assist to scoot forward. Patient is able to stand and perform a stand pivot transfer with max assist, she does seem to be able to bear a little weight through her legs during the transfer. Weight Bearing Right Lower Extremity: Right Weight Bearing/Tolerated Left Lower Extremity: Left Weight Bearing/Tolerated Exercises Seated Therapy Exercises: Ankle pumps, Long arc quads Seated Reps: 15 Treatments bed mobility and transfers, LE exercise Assessment Current Status: Fair Progress improved weight bearing on legs PT Jail Goals Jail Goals PT Circle Edger Goals Time Frame: Oct 28, 2019 Roll Left & Right (QC): 2 Sit to Lying (QC): 2 Lying-Sitting on Side/Bed(QC): 2 Sit to Stand (QC): 2 Chair/Nhl-hc-Pmpbs Xfer(QC): 2 Toilet Transfer (QC): 2 Car Transfer (QC): 88 Does the Patient Walk: No and Walking Goal IS indicated Walk 10 feet (QC): 2 Walk 50ft with 2 Turns (QC): 2 Walk 150 ft (QC): 88 Walking 10ft on Uneven Surface: 2 1 Step (curb) (QC): 2 4 Steps (QC): 9 12 Steps (QC): 9 Picking up an Object (QC): 3 Does the Pt use WC or Scooter?: Yes Type: Manual Type: Manual PT Plan Problem List Problem List: Activity Tolerance, Functional Strength, Safety, Balance, Gait, Transfer, Bed Mobility, ROM Treatment/Plan Treatment Plan: Continue Plan of Care Treatment Plan: Bed Mobility, Education, Functional Activity Tanya, Functional Strength, Gait, Safety, Therapeutic Exercise, Transfers Treatment Duration: Oct 28, 2019 Frequency: 6 times per week Estimated Hrs Per Day: .5 hour per day Patient and/or Family Agrees t: Yes Safety Risks/Education Patient Education: Transfer Techniques, Correct Positioning, Safety Issues Teaching Recipient: Patient Teaching Methods: Demonstration, Discussion Response to Teaching: Reinforcement Needed Time/GCodes Time In: 1030 Time Out: 1046 Total Billed Treatment Time: 16 Total Billed Treatment 1 visit FA RODRIGUEZ LOPES PT Oct 18, 2019 10:55 POS
--- NOTE | 2019-10-18 11:09 | Progress Note ---
RAMONE DEJESUS,MED STUDENT 10/18/19 1109: Subjective Date Seen by a Provider: Oct 18, 2019 Time Seen by a Provider: 09:25 Subjective/Events-last exam Chief complaint: Bilateral pubic rami fractures with severe pain and inability to ambulate History of present illness: This is a 79-year-old white female clinic patient of Theresa Don in [place] who has a past medical history of dementia with anxiety, overactive bladder, hypertension and neuropathy who presented to [place] ER after a fall found down at home by her daughter likely on the floor for about 8 hours. She had a very minimal elevation in CPK. She reports that she sustained a fall in the middle of the night and is not aware of exactly what happened. Currently she is only reporting pain where the fractures are. We have placed her on Lovenox and pain control due to immobile state. We will initiate PT and OT orders inquire for prior approval from insurance for inpatient rehab and monitor closely for delirium due to history of dementia. I did review the old records in the [facility] system. I have reviewed her home medication and she will take her own tonight. 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 Her daughters at the bedside. Subjective/events-last exam Patient states that pain is about the same as yesterday. She reports a cough. She is not on O2 at home. She had a bowel movement yesterday. Patient was denied from inpatient rehab due to current inability to tolerate intensive therapies. She and her daughter request alf in [place], social work is in the process with this Objective Exam Last Set of Vital Signs Vital Signs Date Time Temp Pulse Resp B/P (MAP) Pulse Ox O2 Delivery O2 Flow Rate FiO2 10/18/19 09:28 93 Room Air 10/18/19 09:15 1.50 10/18/19 08:00 36.6 89 18 127/80 (96) 10/16/19 08:55 21 Capillary Refill : Less Than 3 Seconds I&O Intake and Output 10/17/19 23:59 Intake Total 1540 ml Output Total 1100 ml Balance 440 ml Intake Oral 1540 ml Output Urine Total 1100 ml # Voids 4 # Bowel Movements 1 General: Alert, No Acute Distress HEENT: Atraumatic, Mucous Memb Moist/Renick Neck: Supple, No LAD Lungs: Other (lung sounds slightly coarse on right side, improved on repeat exam) Heart: No Murmurs, Other (tachycardic with regular rhythm) Abdomen: Soft, No Tenderness Extremities: No Edema, No Tenderness/Swelling, Other (reduced ROM of lower extremities due to pelvic fracture) Skin: No Rashes, No Significant Lesion Results Lab Laboratory Tests 10/18/19 05:15: White Blood Count 9.4, Red Blood Count 4.47, Hemoglobin 12.8, Hematocrit 39, Mean Corpuscular Volume 87, Mean Corpuscular Hemoglobin 29, Mean Corpuscular Hemoglobin Concent 33, Red Cell Distribution Width 18.7H, Platelet Count 270, Mean Platelet Volume 9.2, Neutrophils (%) (Auto) 56, Lymphocytes (%) (Auto) 28, Monocytes (%) (Auto) 12, Eosinophils (%) (Auto) 5, Basophils (%) (Auto) 1, Neutrophils # (Auto) 5.3, Lymphocytes # (Auto) 2.6, Monocytes # (Auto) 1.1H, Eosinophils # (Auto) 0.4H, Basophils # (Auto) 0.1, Sodium Level 139, Potassium Level 4.5, Chloride Level 103, Carbon Dioxide Level 26, Anion Gap 10, Blood Urea Nitrogen 23H, Creatinine 0.90, Estimat Glomerular Filtration Rate > 60, BUN/Creatinine Ratio 26, Glucose Level 104, Calcium Level 9.6, Corrected Calcium 9.7, Total Bilirubin 1.2H, Aspartate Amino Transf (AST/SGOT) 23, Alanine Aminotransferase (ALT/SGPT) 14, Alkaline Phosphatase 75, Total Protein 6.6, Albumin 3.9 Assessment/Plan Assessment/Plan Assess & Plan/Chief Complaint Assessment: Bilateral pubic rami fractures Inability to ambulate HTN OAB Dementia Mental illness Neuropathy Plan: Pain control Lovenox for DVT prophylaxis Home meds Continue OT/PT Breathing treatments PRN Likely discharge to alf in [place] tomorrow Clinical Quality Measures DVT/VTE Risk/Contraindication: Risk Factor Score Per Nursin RFS Level Per Nursing on Admit: 4+=Very High TRINI SOLO DO 10/18/192131: Subjective Subjective/Events-last exam Had some coarse breath sounds early this morning Nebulizer ordered IS will be started Had a BM yesterday after laxatives Cognition will have a very slow recovery on her and affect her overall outcome Assessment/Plan Assessment/Plan Assess & Plan/Chief Complaint DC to MD tomorrow Supervisory-Addendum Brief Verification & Attestation Participated in pt care: history, MDM, physical Personally performed: exam, history, MDM, supervision of care Care discussed with: Medical Student Procedures: n/a Results interpretation: Verified all documentation Verification and Attestation of Medical Student E/M Service A medical student performed and documented this service in my presence. I reviewed and verified all information documented by the medical student and made modifications to such information, when appropriate. I personally performed the physical exam and medical decision making. Trini Solo, Oct 18, 2019,21:31 RAMONE DEJESUS,MED DWAYNE Oct 18, 2019 11:09 TRINI URENA DO Oct 18, 2019 21:32 POS
[2019-10-18] MEDS ORDERED: PATIENT MAY USE OWN MEDS, ALL MC SCH (11:15)
--- NOTE | 2019-10-18 15:30 | NUR ---
CM DISCHARGE PLANNING: Patient will need a mcc home at discharge. Referral has been sent by Mayda MANZO to [facility] from patient et family request. This is being processed by them et they have been working with the patients managed medicare insurance for two days. Her son Ifeanyi expressed interest in another skilled facility et contacted them independently. They have contacted us to request clinical to start an auth request. Visited with patient et her two daughters at bedside about this new development. They expressed that her son Ifeanyi really wanted a different snf d/t his positive experience with them in the past. We visited with Ifeanyi on the phone et all are in agreement to allow [facility] to continue with their process at this time. I f/u with the [facility] to cancel Ifeanyi's request at this time. Explained situation to them and [facility] et both are in support of current plan.
--- NOTE | 2019-10-18 15:49 | NUR ---
Pastoral care visit.
[2019-10-18 16:15] VITALS: BP 161/74
--- NOTE | 2019-10-18 16:30 | NUR ---
DISCHARGE PLANNING: [facility] nurse clinical reviewer (Rachna) contacted this nurse et had additional questions to process skilled request. Information given to her et phone taken to Xuan patients daughter at bedside to answer some demographic questions as well. Notified Rachna that our goal for discharge is 10/19. She will process et notify us of authorization vs. denial.
[2019-10-18] MEDS: ENOXAPARIN 40 MG/0.4 ML (LOVENOX) SYR SC SCH (17:20)
[2019-10-18] MEDS: ALPRAZolam 0.25 MG (XANAX) TAB PO PRN (20:25)
[2019-10-18 20:30] VITALS: BP 179/80
[2019-10-18] MEDS ORDERED: QUEtiapine 25 MG (SEROquel) TAB IMMEDIATE RELEASE PO SCH (21:00)
[2019-10-18] MEDS ORDERED: MEMANTINE 5 MG (NAMENDA) TABLET PO SCH ×2 (21:00)
[2019-10-18] MEDS ORDERED: GABAPENTIN 100 MG (NEURONTIN) CAP PO SCH (21:00)
[2019-10-18] MEDS ORDERED: MELATONIN 3 MG TABLET PO SCH (21:00)
[2019-10-19] VITALS: BP 146/80
[2019-10-19] MEDS: HYDROcodone/APAP 5 MG/325 MG (LORTAB) TAB PO PRN ×2 (05:28→11:39)
[2019-10-19] MEDS ORDERED: MULTIVITAMIN WITH MINERALS PO SCH (07:00)
[2019-10-19] MEDS: RT-ALBUTEROL/IPRATROPIUM 3 ML (DUONEB) VIAL INH SCH (07:16)
[2019-10-19 08:00] VITALS: BP 169/81
--- NOTE | 2019-10-19 08:50 | NUR ---
CM DISCHARGE PLANNING: Notified at this time by [facility] at [facility] that Katarina has been approved for skilled placement at [facility] for today. Notified Dr. Goldberg/Mayda MANZO so that they can process the Care Assessment.
[2019-10-19] MEDS ORDERED: Escitalopram Oxalate 10 MG PO SCH (09:00)
[2019-10-19] MEDS: SENNA W/DOCUSATE (SENOKOT S) TABLET PO SCH (09:02)
[2019-10-19] MEDS: FERROUS SULF 325 MG (IRON) TAB PO SCH (09:02)
[2019-10-19] MEDS: amLODIPine 5 MG (NORVASC) TAB PO SCH (09:03)
[2019-10-19] MEDS ORDERED: ACHD5005 PO (09:25)
[2019-10-19] MEDS ORDERED: ENOX40DI8 SC (09:25)
[2019-10-19] MEDS ORDERED: SENN-20 PO (09:25)
--- NOTE | 2019-10-19 09:26 | Discharge Inst-Skilled Nursing ---
Discharge Inst-Skilled NF Reconcile Patient Problems Problems Reviewed?: Yes Chief Complaint Chief complaint: Bilateral pubic rami fractures with severe pain and inability to ambulate History of present illness: This is a 79-year-old white female clinic patient of Theresa Don in [place] who has a past medical history of dementia with anxiety, overactive bladder, hypertension and neuropathy who presented to [place] ER after a fall found down at home by her daughter likely on the floor for about 8 hours. She had a very minimal elevation in CPK. She reports that she sustained a fall in the middle of the night and is not aware of exactly what happened. Currently she is only reporting pain where the fractures are. We have placed her on Lovenox and pain control due to immobile state. We will initiate PT and OT orders inquire for prior approval from insurance for inpatient rehab and monitor closely for delirium due to history of dementia. I did review the old records in the [facility] system. I have reviewed her home medication and she will take her own tonight. 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 Her daughters at the bedside. Patient Instructions Patient Problems: Bilateral pubic rami fractures Dementia Goal: Page Consult/Follow Up/Orders Follow Up Appt.: PCP 1 week Skilled NF Admit to: [facility] [place] Certification (SNF) I certify that SNF services are required to be given on an inpatient basis because of the above named patient's need for residential care on a continuing basis for the conditions(s) for which he/she was receiving inpatient hospital services prior to his/her transfer to the SNF. Retirement Facility Order: Nursing Services, Industrial Production Manager-Evaluate & Treat, Physical Therapy-Evaluate & Treat, Speech Language-Evaluate & Treat Oxygen Delivery Method: Room Air Discharge Diet: No Restrictions Resuscitation Status: Full Code New & Resume Previous Orders New Medications: Enoxaparin Sodium (Enoxaparin Sodium) 40 Mg/0.4 Ml Syringe 40 MG SC DAILY@1700 for 14 Days, SYRINGE Hydrocodone Bit/Acetaminophen (Hydrocodone/Acetaminophen 5/325mg Tablet) 1 Tab Tab 1 TAB PO Q4H PRN for PAIN-MODERATE, #30 TAB Sennosides/Docusate Sodium (Senna-Time S Tablet) 1 Each Tablet 2 EA PO BID for 30 Days, TAB Continued Medications: Albuterol Sulfate (Proventil Hfa) 6.7 Gm Hfa.aer.ad 2 PUFF INH Q4H PRN for SHORTNESS OF BREATH, INHALER Amlodipine Besylate (Amlodipine Besylate) 5 Mg Tablet 5 MG PO DAILY, TAB Escitalopram Oxalate (Escitalopram Oxalate) 10 Mg Tablet 10 MG PO DAILY, TAB Ferrous Sulfate (Ferrous Sulfate) 325 Mg Tablet 325 MG PO BID, TAB Gabapentin (Gabapentin) 100 Mg Capsule 100 MG PO HS, CAP Melatonin (Melatonin) 5 Mg Tablet 5 MG PO HS, TAB Memantine HCl (Memantine HCl) 5 Mg Tablet 5 MG PO HS, TAB Mirabegron (Myrbetriq) 25 Mg Tab.er.24h 25 MG PO DAILY, TAB Multivitamin with Minerals (One Daily Complete) 1 Each Tablet 1 TAB PO DAILY, TAB Quetiapine Fumarate (Seroquel) 50 Mg Tablet 25 MG PO HS, TAB TAKES 1/2 (50MG) TABLET Trini Solo Oct 19, 2019 09:26 TRINI SOLO DO Oct 19, 2019 09:26 POS
--- NOTE | 2019-10-19 09:27 | Discharge Summary ---
Diagnosis/Chief Complaint Date of Admission Oct 15, 2019 at 15:32 Date of Discharge Discharge Date: Oct 19, 2019 Discharge Diagnosis Assessment: Bilateral pubic rami fractures Dementia Discharge Summary Discharge Physical Examination Allergies: Coded Allergies: Indomethacin (Unverified Allergy, Mild, 02/26/10) Lansoprazole (Unverified Allergy, Mild, 02/26/10) Omeprazole (Unverified Allergy, Mild, 02/26/10) Sumatriptan (Unverified Allergy, Mild, 02/26/10) Vitals & I&Os Vital Signs Date Time Temp Pulse Resp B/P (MAP) Pulse Ox O2 Delivery O2 Flow Rate FiO2 10/19/19 11:45 36.0 91 18 169/81 90 Room Air 10/19/19 08:00 1.50 10/16/19 08:55 21 General Appearance: Alert, Oriented X3, Cooperative Respiratory: Clear to Auscultation, Normal Air Movement Cardiovascular: Regular Rate Psych/Mental Status: Other (subtle confusion) Hospital Course Was the Problem List Reviewed?: Yes Hospital course: Pt had an uneventful hospital course for five days after she was admitted due to B/L pelvic rami fractures and initiated good pain control along with DVT prophylaxis and good bowel regimen and IS. PT and OT were both consulted, but due to dementia she met criteria to be on skilled care and not in patient rehab structured program so [facility], so she was discharged in improved condition, labs remained stable, bowels were moving, will remain on Lovenox for at least fourteen days, and Pt will be maintained on Hydrocodone and her regular home medication and will follow up with her family doctor Theresa Richards. Labs (last 24 hrs) Laboratory Tests 10/16/19 05:30: White Blood Count 9.0, Red Blood Count 4.54, Hemoglobin 12.9, Hematocrit 39, Me an Corpuscular Volume 86, Mean Corpuscular Hemoglobin 28, Mean Corpuscular Hemoglobin Concent 33, Red Cell Distribution Width 19.1H, Platelet Count 300, Mean Platelet Volume 9.3, Neutrophils (%) (Auto) 62, Lymphocytes (%) (Auto) 25, Monocytes (%) (Auto) 10, Eosinophils (%) (Auto) 3, Basophils (%) (Auto) 0, Neutrophils # (Auto) 5.6, Lymphocytes # (Auto) 2.2, Monocytes # (Auto) 0.9, Eosinophils # (Auto) 0.2, Basophils # (Auto) 0.0, Sodium Level 136, Potassium Level 3.7, Chloride Level 100, Carbon Dioxide Level 23, Anion Gap 13, Blood Urea Nitrogen 28H, Creatinine 1.23, Estimat Glomerular Filtration Rate 42, BUN/Creatinine Ratio 23, Glucose Level 117H, Calcium Level 9.4, Corrected Calcium 9.4, Total Bilirubin 1.3H, Aspartate Amino Transf (AST/SGOT) 22, Alanine Aminotransferase (ALT/SGPT) 14, Alkaline Phosphatase 73, Total Protein 6.5, Albumin 4.0 10/18/19 05:15: White Blood Count 9.4, Red Blood Count 4.47, Hemoglobin 12.8, Hematocrit 39, Mean Corpuscular Volume 87, Mean Corpuscular Hemoglobin 29, Mean Corpuscular Hemoglobin Concent 33, Red Cell Distribution Width 18.7H, Platelet Count 270, Mean Platelet Volume 9.2, Neutrophils (%) (Auto) 56, Lymphocytes (%) (Auto) 28, Monocytes (%) (Auto) 12, Eosinophils (%) (Auto) 5, Basophils (%) (Auto) 1, Neutrophils # (Auto) 5.3, Lymphocytes # (Auto) 2.6, Monocytes # (Auto) 1.1H, Eosinophils # (Auto) 0.4H, Basophils # (Auto) 0.1, Sodium Level 139, Potassium Level 4.5, Chloride Level 103, Carbon Dioxide Level 26, Anion Gap 10, Blood Urea Nitrogen 23H, Creatinine 0.90, Estimat Glomerular Filtration Rate > 60, BUN/Creatinine Ratio 26, Glucose Level 104, Calcium Level 9.6, Corrected Calcium 9.7, Total Bilirubin 1.2H, Aspartate Amino Transf (AST/SGOT) 23, Alanine Aminotransferase (ALT/SGPT) 14, Alkaline Phosphatase 75, Total Protein 6.6, Albumin 3.9 Pending Labs Laboratory Tests 10/16/19 05:30: White Blood Count 9.0, Red Blood Count 4.54, Hemoglobin 12.9, Hematocrit 39, Mean Corpuscular Volume 86, Mean Corpuscular Hemoglobin 28, Mean Corpuscular Hemoglobin Concent 33, Red Cell Distribution Width 19.1, Platelet Count 300, Mean Platelet Volume 9.3, Neutrophils (%) (Auto) 62, Lymphocytes (%) (Auto) 25, Monocytes (%) (Auto) 10, Eosinophils (%) (Auto) 3, Basophils (%) (Auto) 0, Neutrophils # (Auto) 5.6, Lymphocytes # (Auto) 2.2, Monocytes # (Auto) 0.9, Eosinophils # (Auto) 0.2, Basophils # (Auto) 0.0, Sodium Level 136, Potassium Level 3.7, Chloride Level 100, Carbon Dioxide Level 23, Anion Gap 13, Blood Urea Nitrogen 28, Creatinine 1.23, Estimat Glomerular Filtration Rate 42, BUN/Creatinine Ratio 23, Glucose Level 117, Calcium Level 9.4, Corrected Calcium 9.4, Total Bilirubin 1.3, Aspartate Amino Transf (AST/SGOT) 22, Alanine Aminotransferase (ALT/SGPT) 14, Alkaline Phosphatase 73, Total Protein 6.5, Albumin 4.0 10/18/19 05:15: White Blood Count 9.4, Red Blood Count 4.47, Hemoglobin 12.8, Hematocrit 39, Mean Corpuscular Volume 87, Mean Corpuscular Hemoglobin 29, Mean Corpuscular Hemoglobin Concent 33, Red Cell Distribution Width 18.7, Platelet Count 270, Mean Platelet Volume 9.2, Neutrophils (%) (Auto) 56, Lymphocytes (%) (Auto) 28, Monocytes (%) (Auto) 12, Eosinophils (%) (Auto) 5, Basophils (%) (Auto) 1, Neutrophils # (Auto) 5.3, Lymphocytes # (Auto) 2.6, Monocytes # (Auto) 1.1, Eosinophils # (Auto) 0.4, Basophils # (Auto) 0.1, Sodium Level 139, Potassium Level 4.5, Chloride Level 103, Carbon Dioxide Level 26, Anion Gap 10, Blood Urea Nitrogen 23, Creatinine 0.90, Estimat Glomerular Filtration Rate > 60, BUN/Creatinine Ratio 26, Glucose Level 104, Calcium Level 9.6, Corrected Calcium 9.7, Total Bilirubin 1.2, Aspartate Amino Transf (AST/SGOT) 23, Alanine Aminotransferase (ALT/SGPT) 14, Alkaline Phosphatase 75, Total Protein 6.6, Albumin 3.9 Discharge Home Medications: Active Scripts Active Senna-Time S Tablet (Sennosides/Docusate Sodium) 1 Each Tablet 2 Ea PO BID 30 Days Hydrocodone/Acetaminophen 5/325mg Tablet (Acetaminophen/Hydrocodone Bitart) 1 Tab Tab 1 Tab PO Q4H PRN Enoxaparin Sodium 40 Mg/0.4 Ml Syringe 40 Mg SC DAILY@1700 14 Days Reported Seroquel (Quetiapine Fumarate) 50 Mg Tablet 25 Mg PO HS TAKES 1/2 (50MG) TABLET Ferrous Sulfate 325 Mg Tablet 325 Mg PO BID Melatonin 5 Mg Tablet 5 Mg PO HS One Daily Complete (Multivitamin with Minerals) 1 Each Tablet 1 Tab PO DAILY Amlodipine Besylate 5 Mg Tablet 5 Mg PO DAILY Memantine HCl 5 Mg Tablet 5 Mg PO HS Myrbetriq (Mirabegron) 25 Mg Tab.er.24h 25 Mg PO DAILY Escitalopram Oxalate 10 Mg Tablet 10 Mg PO DAILY Gabapentin 100 Mg Capsule 100 Mg PO HS Proventil Hfa (Albuterol Sulfate) 6.7 Gm Hfa.aer.ad 2 Puff INH Q4H PRN Instructions to patient/family Please see electronic discharge instructions given to patient. Diagnosis/Problems Diagnosis/Problems (1) Bilateral pubic rami fractures (2) Chronic mental illness (3) Kidney stones (4) Osteoarthritis (5) Behavior disturbance (6) Hypertension (7) Fall (8) OAB (overactive bladder) Clinical Quality Measures DVT/VTE Risk/Contraindication: Risk Factor Score Per Nursin RFS Level Per Nursing on Admit: 4+=Very High JANETT COTE DO Oct 19, 2019 09:27 POS
--- NOTE | 2019-10-19 10:33 | Occupational Ther Daily Note ---
OT Current Status-Daily Note Subjective Pt sitting upright in chair this AM with daughter present. Pt agreeable to OT tx with focus on ADLs. Pt did not verbalize pain rating during session. ADL-Treatment Therapy Code Descriptions/Definitions Functional [place] Measure: 0=Not Assessed/NA 4=Minimal Assistance 1=Total Assistance 5=Supervision or Setup 2=Maximal Assistance 6=Modified [place] 3=Moderate Assistance 7=Complete IndependenceSCALE: Activities may be completed with or without assistive devices. 2-Lbjpqonvqw-vbrruwv completes the activity by him/herself with no assistance from a helper. 5-Set-up or Clean-up Assistance-helper sets up or cleans up; patient completes activity. [place] assists only prior to or following the activity. 4-Supervision or Touching Assistance-helper provides verbal cues and/or touching/steadying and/or contact guard assistance as patient completes activity. Assistance may be provided throughout the activity or intermittently. 3-Partial/Moderate Assistance-helper does LESS THAN HALF the effort. [place] lifts, holds or supports trunk or limbs, but provides less than half the effort. 2-Substantial/Maximal Assistance-helper does MORE THAN HALF the effort. [place] lifts or holds trunk or limbs and provides more than half the effort. 2-Gvdanwpau-itpkxg does ALL the effort. Patient does none of the effort to complete the activity. Or, the assistance of 2 or more helpers is required for the patient to complete the activity. If activity was not attempted, code reason: 7-Patient Refused. 9-Not Applicable-not attempted and the patient did not perform the activity before the current illness, exacerbation or injury. 10-Not Attempted due to Environmental Limitations-(lack of equipment, weather restraints, etc.). 88-Not Attempted due to Medical Conditions or Safety Concerns. Shower/Bathe Self (QC): 3 (Pt able to wash BUEs, chest, abdome, periarea. she required assist with BLE lower legs/feet, and buttocks. Pt attempted to stand at FWW with Max assist, stated increased pain. Pt was able to lift buttocks off of chair far enough for cleaning but did not fully stand at walker.) Upper Body Dressing (QC): 3 (Pt required assistance with tying/untying gown, she is able to thread/unthread arms from gown.) FOOTWEAR QC: 1: pt required total assistance with task. Other Treatment Pt seated in recliner throughout session. She completed upper body dressing and sponge bath. Post ADL session, pt seated upright in recliner, call light in reach and all needs met with daughter present. Education OT Patient Education: Correct positioning, Energy conservation, Modified ADL techniques, Progress toward Goal/Update tx plan, Purpose of tx/functional activities, Transfer techniques Teaching Recipient: Patient, Family Teaching Methods: Demonstration, Discussion Response to Teaching: Verbalize Understanding, Return Demonstration OT Longterm Goals Leasing Property Manager Goals Time Frame: Oct 27, 2019 Eating (QC): 6 Oral Hygiene (QC): 6 Toileting Hygiene (QC): 6 Shower/Bathe Self (QC): 6 Upper Body Dressing (QC): 6 Lower Body Dressing (QC): 6 On/Off Footwear (QC): 6 Additional Goals: 1-Demonstrate ADL Tasks, 2-Verbalize Understanding, 3- ImproveStrength/Tanya 1=Demonstrate adherence to instructed precautions during ADL tasks. 2=Patient will verbalize/demonstrate understanding of assistive devices/modifications for ADL. 3=Patient will improve strength/tolerance for activity to enable patient to perform ADL's. OT Education/Plan Problem List/Assessment Assessment: Decreased Activ Tolerance, Decreased UE Strength Discharge Recommendations Plan/Recommendations: Continue POC Treatment Plan/Plan of Care Patient would benefit from OT for education, treatment and training to promote independence in ADL's, mobility, safety and/or upper extremity function for ADL's. Plan of Care: ADL Retraining, Caregiver Training, Functional Mobility, UE Funct Exercise/Act Treatment Duration: Oct 27, 2019 Frequency: 5 times per week Estimated Hrs Per Day: .25 hour per day Agreement: Yes Rehab Potential: Guarded Time/GCodes Start Time: 09:05 Stop Time: 09:21 Total Time Billed (hr/min): 16 Billed Treatment Time 1, ADL KELVIN QURESHI OT Oct 19, 2019 10:33 POS
--- NOTE | 2019-10-19 10:34 | NUR ---
REPORT GIVEN AT THIS TIME TO PETE NURSE WHO WILL ASSUME CARE OF THIS PATIENT WHEN SHE ARRIVES TO [facility]. THIS RN WILL CONT TO MONITOR THIS PATIENT.
--- NOTE | 2019-10-19 10:35 | NUR ---
SS/CM : Discharge Planning - Pt going to [facility] Plan: Level I CARE Assessment completed. 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 Family expressed appreciation for care given to pt while here. Additional information copied and placed in the Discharge Packet.
--- NOTE | 2019-10-19 11:27 | Physical Therapy Daily Note ---
PT Daily Note-Current Subjective Patient agrees to PT. Plan dismissal to NE on this date. Pain Numeric Pain Scale: 8 Location: Right, Left Location Body Site: Pelvic Pain Description: Acute Mental Status Patient Orientation: Person, Time, Situation Transfers SCALE: Activities may be completed with or without assistive devices. 5-Miaqzjjdzj-lknpubf completes the activity by him/herself with no assistance from a helper. 5-Set-up or Clean-up Assistance-helper sets up or cleans up; patient completes activity. [place] assists only prior to or following the activity. 4-Supervision or Touching Assistance-helper provides verbal cues and/or touching/steadying and/or contact guard assistance as patient completes activity. Assistance may be provided throughout the activity or intermittently. 3-Partial/Moderate Assistance-helper does LESS THAN HALF the effort. [place] lifts, holds or supports trunk or limbs, but provides less than half the effort. 2-Substantial/Maximal Assistance-helper does MORE THAN HALF the effort. [place] lifts or holds trunk or limbs and provides more than half the effort. 4-Wsqgabnqv-mbalwu does ALL the effort. Patient does none of the effort to complete the activity. Or, the assistance of 2 or more helpers is required for the patient to complete the activity. If activity was not attempted, code reason: 7-Patient Refused. 9-Not Applicable-not attempted and the patient did not perform the activity before the current illness, exacerbation or injury. 10-Not Attempted due to Environmental Limitations-(lack of equipment, weather restraints, etc.). 88-Not Attempted due to Medical Conditions or Safety Concerns. Sit to Stand (QC): 4 Weight Bearing Right Lower Extremity: Right Weight Bearing/Tolerated Left Lower Extremity: Left Weight Bearing/Tolerated Gait Training Does the Patient Walk?: Yes Distance: 40' Walk 10 feet (QC): 3 Walk 50 ft with 2 Turns(QC): 88 Walk 150 ft (QC): 88 Gait Assistive Device: FWW slow, antalgic, step to gait sequence Exercises Seated Therapy Exercises: Ankle pumps, Long arc quads Seated Reps: 15 Assessment Patient progressing with treatment plan and will continue to progress at NE at slow, steady pace. Family present. Patient to dismiss on this date. PT Geochemist Goals Geochemist Goals PT Skilled Nursing Goals Time Frame: Oct 28, 2019 Roll Left & Right (QC): 2 Sit to Lying (QC): 2 Lying-Sitting on Side/Bed(QC): 2 Sit to Stand (QC): 2 Chair/Czn-qf-Tokuo Xfer(QC): 2 Toilet Transfer (QC): 2 Car Transfer (QC): 88 Does the Patient Walk: No and Walking Goal IS indicated Walk 10 feet (QC): 2 Walk 50ft with 2 Turns (QC): 2 Walk 150 ft (QC): 88 Walking 10ft on Uneven Surface: 2 1 Step (curb) (QC): 2 4 Steps (QC): 9 12 Steps (QC): 9 Picking up an Object (QC): 3 Does the Pt use WC or Scooter?: Yes Type: Manual Type: Manual PT Plan Treatment/Plan Treatment Plan: Discontinue PT Treatment Plan: Bed Mobility, Education, Functional Activity Tanya, Functional Strength, Gait, Safety, Therapeutic Exercise, Transfers Treatment Duration: Oct 28, 2019 Frequency: 6 times per week Estimated Hrs Per Day: .5 hour per day Patient and/or Family Agrees t: Yes Time/GCodes Time In: 935 Time Out: 948 Total Billed Treatment Time: 13 Total Billed Treatment 1 visit GT 13 min NOMI SHERMAN PT Oct 19, 2019 11:27 POS
[2019-10-19 11:45] VITALS: BP 169/81
== END 2019-10-19 11:45 | DRG 536 ==
LOC: 4TH 15:32
PROVIDERS: ADMIT Internal Medicine; ATTEND Internal Medicine
DX: S32.501A Unspecified fracture of right pubis, initial encounter for closed fracture (principal); S32.502A Unspecified fracture of left pubis, initial encounter for closed fracture; F03.91 Unspecified dementia, unspecified severity, with behavioral disturbance; F41.9 Anxiety disorder, unspecified; F32.9 Major depressive disorder, single episode, unspecified; I10 Essential (primary) hypertension; N32.81 Overactive bladder; G62.9 Polyneuropathy, unspecified; E78.00 Pure hypercholesterolemia, unspecified; K59.09 Other constipation; E66.9 Obesity, unspecified; D50.9 Iron deficiency anemia, unspecified; M19.91 Primary osteoarthritis, unspecified site; W19.XXXA Unspecified fall, initial encounter; Y92.009 Unspecified place in unspecified non-institutional (private) residence as the place of occurrence of the external cause; Z68.30 Body mass index [BMI] 30.0-30.9, adult; Z87.442 Personal history of urinary calculi
CPT/HCPCS: 36415; 80053; 85025; 94640; 94664; 94760